=== PATIENT | male | born 1980 | race Caucasian/White ===

== ENCOUNTER 2022-04-25 07:47 | Emergency (ER) | payer BC, OTHER ==
[2022-04-25 08:01] VITALS: BP 125/93; PULSE 105; RESP 20; TEMP 98.9; BMI 30.4
== END 2022-04-25 09:54 | disposition home or self-care (01) ==
LOC: JER 07:47
DX: J09.X2 Influenza due to identified novel influenza A virus with other respiratory manifestations (principal); R05.1 Acute cough
CPT/HCPCS: 0241U-QW; 99283-25